=== PATIENT | male | born 1950 | race African-American/Black ===

== ENCOUNTER 2017-08-06 09:17 | Day surgery (SDC) | payer OTHER ==
[2017-08-02 15:17] VITALS: BMI 23.7
[2017-08-06] MEDS ORDERED: DESFLURANE GAS 240 ML BOTTLE IH ONE (11:47)
[2017-08-06] MEDS ORDERED: PROPOFOL 20 ML ONE ×3 (11:55)
[2017-08-06] MEDS ORDERED: LIDOCAINE HCL/PF 2% SDV 5ML VIAL ONE (11:55)
[2017-08-06] MEDS ORDERED: MIDAZOLAM HCL 2 MG/2 ML SINGLE DOSE VIAL ONE ×2 (11:57)
[2017-08-06] MEDS ORDERED: LEVOFLOXACIN 500 MG PREMIX BAG IVPB ONE (12:03)
[2017-08-06] MEDS ORDERED: ONDANSETRON 4 MG/2 ML VIAL IVPUSH PRN (13:00)
[2017-08-06] MEDS ORDERED: LACTATED RINGERS SOLUTION 1,000 ML IV SCH (13:00)
[2017-08-06] MEDS ORDERED: PROMETHAZINE HCL 25 MG/1 ML VIAL IVPUSH PRN (13:00)
[2017-08-06] MEDS ORDERED: oxyCODONE HCL 5 MG TABLET PO PRN (13:00)
--- NOTE | 2017-08-06 13:16 | OP ---
Operative Note - Note: Operative Date: 08/06/17 Pre-Operative Diagnosis: recurrent bladder tumor Operation: cystoscopy and multiple bladder biopsies Findings: multiple erythematous areas Post-Operative Diagnosis: Same as Pre-op Surgeon: Christofer Watson Anesthesia: General Specimens Removed: bladder biopsies
[2017-08-06 13:59] VITALS: TEMP 97.6
[2017-08-06 16:45] VITALS: BP 128/70; PULSE 65
--- NOTE | 2017-08-06 21:26 | OP ---
DATE OF OPERATION: 08/06/2017 PREOPERATIVE DIAGNOSIS: Recurrent bladder tumor. POSTOPERATIVE DIAGNOSIS: Recurrent bladder tumor. PROCEDURE: Cystoscopy and multiple bladder biopsies. ATTENDING: Christofer Nelson MD ANESTHESIA: General. DESCRIPTION OF OPERATION: The patient was brought in the operating room, placed in supine position on the operating room table. The patient was given general anesthesia and preoperative antibiotics. He was then placed in a dorsal lithotomy position. He was prepped and draped in the usual sterile manner. A continuous cystoscope was utilized, and the bladder was entered. Multiple erythematous patches involving the right lateral wall and posterior bladder as well as dome of the bladder were noted. Multiple biopsies of this area were taken and sent individually according to area to Pathology for evaluation. There were no complications noted. Good hemostasis was attained. However, a Aldrich catheter was placed, and the patient was noted to have blood-tinged urine. The bladder tissue was friable, and with filling of the bladder, there was mild bleeding from distention. There was no evidence of perforation. No complications were noted. The disposition of the patient was to the recovery room. Nick [id number]
--- NOTE | 2017-08-07 11:39 | PATH ---
Surgical Pathology Report Patient Name: KALANI WHITMAN [facility]. Rec. #: [id number] /Age/Gender: 1950 (Age: 66) / M Account: [id number] Location: [facility] Taken: 08/06/2017 Received: 08/06/2017 Reported: 08/07/2017 Physicians: Christofer Watson Specimen(s) Received A: POSTERIORBLADDER BIOPSY B: RIGHT LATERAL WALL BX C: BLADDER DOME BIOPSY Clinical History Neoplasm of uncertain behavior of bladder Final Diagnosis A. BLADDER, POSTERIOR WALL, BIOPSY: PORTIONS OF BLADDER WALL WITH AREAS OF NECROSIS, WITH ASSOCIATED CHRONIC INFLAMMATION AND AREAS OF HEMORRHAGE. EXTENSIVE DENUDEMENT OF UROTHELIUM IS PRESENT. NO CARCINOMA IS IDENTIFIED. MUSCULARIS PROPRIA/DETRUSOR MUSCLE IS NOT IDENTIFIED. B. BLADDER, RIGHT LATERAL WALL, BIOPSY: PORTIONS OF BLADDER WALL WITH AREAS OF NECROSIS, WITH ASSOCIATED CHRONIC INFLAMMATION AND AREAS OF HEMORRHAGE. EXTENSIVE DENUDEMENT OF UROTHELIUM IS PRESENT. NO CARCINOMA IS IDENTIFIED. MUSCULARIS PROPRIA/DETRUSOR MUSCLE IS NOT IDENTIFIED. C. BLADDER, DOME, BIOPSY: PORTIONS OF BLADDER WALL WITH AREAS OF NECROSIS, WITH ASSOCIATED CHRONIC INFLAMMATION AND AREAS OF HEMORRHAGE. EXTENSIVE DENUDEMENT OF UROTHELIUM IS PRESENT. NO CARCINOMA IS IDENTIFIED. MUSCULARIS PROPRIA/DETRUSOR MUSCLE IS NOT IDENTIFIED. Comment: Recommend correlation with clinical findings and follow up as clinically indicated. Electronically Signed Андрей Marcus M.D. Gross Description A. Received in formalin, labeled "posterior bladder biopsy" are 2 burgess, irregular portions of soft tissue averaging 0.3 cm. in greatest dimension. The specimens are submitted in toto in one cassette. B. Received in formalin, labeled "right lateral wall biopsy" are 3 burgess, irregular portions of soft tissue ranging from 0.1-0.2 cm. in greatest dimension. The specimens are submitted in toto in one cassette. C. Received in formalin, labeled "bladder dome biopsy" is a burgess, irregular portion of soft tissue measuring 0.1 cm. in greatest dimension. The specimen is submitted in toto in one cassette. DL08/06/2017 saudi08/06/2017
== END 2017-08-06 16:00 | disposition home or self-care (01) ==
LOC: JASU-SURG 09:17
PROVIDERS: ATTEND Urology
PROC: 0TBB8ZX Excision of Bladder, Via Natural or Artificial Opening Endoscopic, Diagnostic (ICD-10-PCS; 2017-08-06)
PROC: 0TBB8ZX Excision of Bladder, Via Natural or Artificial Opening Endoscopic, Diagnostic (ICD-10-PCS; principal; 2017-08-06 10:30)
DX: D41.4 Neoplasm of uncertain behavior of bladder (principal)
CPT/HCPCS: 88305-TC; 94760

== ENCOUNTER 2017-11-26 07:46 | Day surgery (SDC) | payer OTHER ==
[2017-11-22 15:37] VITALS: BMI 23.7
[2017-11-26] MEDS ORDERED: PROPOFOL 20 ML ONE ×2 (09:02→09:37)
[2017-11-26] MEDS ORDERED: MIDAZOLAM HCL 2 MG/2 ML SINGLE DOSE VIAL ONE (09:02)
[2017-11-26] MEDS ORDERED: LIDOCAINE HCL/PF 2% SDV 5ML VIAL ONE (09:03)
[2017-11-26] MEDS ORDERED: DEXAMETHASONE SOD PHOSPHATE 4 MG/1 ML VIAL ONE (09:03)
[2017-11-26] MEDS ORDERED: ONDANSETRON 4 MG/2 ML VIAL IVPUSH PRN (09:07)
[2017-11-26] MEDS ORDERED: ACETAMINOPHEN 325 MG TABLET (FP) PO PRN (09:07)
[2017-11-26] MEDS ORDERED: LACTATED RINGERS SOLUTION 1,000 ML IV SCH (09:15)
--- NOTE | 2017-11-26 09:58 | OP ---
Operative Note - Note: Operative Date: 11/26/17 Pre-Operative Diagnosis: neoplasm of bladder Operation: cystoscopy and bladder biopsy Findings: erythematous patches on posterior bladder wall Post-Operative Diagnosis: Same as Pre-op Surgeon: Christofer Watson Anesthesia: General Drains & Tubes with Location: [address]
[2017-11-26 14:16] VITALS: BP 128/78; PULSE 70
[2017-11-26 14:22] VITALS: TEMP 98
--- NOTE | 2017-11-26 19:13 | OP ---
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 PROCEDURE: Cystoscopy and multiple bladder biopsies. ATTENDING: Javier Quinn MD ANESTHESIA: General. DESCRIPTION OF OPERATION: Patient brought in the operating room, placed in supine position on the operating room table. Preoperative antibiotics and anesthesia were instituted without complications. The patient was then placed in the dorsal lithotomy position and prepped and draped in the usual sterile manner. Cystoscopy was performed. Two erythematous patches in the posterior bladder wall were noted. The patient has a history of transitional cell carcinoma and is status post BCG intravesical bladder treatments. The patient had previous bladder biopsies performed which were negative for malignancy. All cytologies have been negative. The patient has agreed to the bladder biopsies to ensure that there is no evidence of transitional cell carcinoma. Multiple bladder biopsies of the posterior bladder wall in the erythematous areas were performed. Electrocoagulation was performed using a Bugbee electrode. Excellent hemostasis was obtained. No complications were noted. The patient was left with Aldrich catheter. The disposition of the patient was to the recovery room. JAVIER QUINN M.D. [id number]
--- NOTE | 2017-11-27 15:56 | PATH ---
Surgical Pathology Report Patient Name: KALANI WHITMAN [facility]. Rec. #: [id number] /Age/Gender: 1950 (Age: 67) / M Account: [id number] Location: [facility] Taken: 11/26/2017 Received: 11/26/2017 Reported: 11/27/2017 Physicians: Christofer Watson Specimen(s) Received BLADDER BIOPSY Clinical History Neoplasm of bladder, history of TCC, status post BCG Final Diagnosis BLADDER, BIOPSY: PREDOMINANTLY DENUDED UROTHELIAL MUCOSA WITH ACUTE AND CHRONIC INFLAMMATION, LAMINA PROPRIA EDEMA AND HEMORRHAGE. NO CARCINOMA IDENTIFIED. NO MUSCULARIS PROPRIA IDENTIFIED. Electronically Signed Flakita Gilliam M.D. Gross Description Received in formalin, labeled "bladder biopsy" are 6 burgess, irregular portions of soft tissue averaging 0.2 cm. in greatest dimension. The specimens are submitted in toto in one cassette. /11/26/201711/26/2017
== END 2017-11-26 13:00 | disposition home or self-care (01) ==
LOC: JASU-SURG 07:46
PROVIDERS: ATTEND Urology
PROC: 0TBB8ZX Excision of Bladder, Via Natural or Artificial Opening Endoscopic, Diagnostic (ICD-10-PCS; principal; 2017-11-26 10:00)
DX: D30.3 Benign neoplasm of bladder (principal); Z85.51 Personal history of malignant neoplasm of bladder
CPT/HCPCS: 88305-TC; 94760